=== PATIENT | female | born 1950 | race Caucasian/White ===

== ENCOUNTER 2017-05-25 12:17 | Emergency (ER) | payer BC, MEDICARE ==
[~2017-05-25] VITALS: Ht 175.3 cm; Wt 75.3 kg
[2017-05-25] MEDS ORDERED: ONDANSETRON 4 MG/2 ML VIAL IV ONE (12:30)
[2017-05-25] MEDS ORDERED: IV NORMAL SALINE 1000 ML BAG IV ONE (12:30)
[2017-05-25] MEDS ORDERED: MONT10TA22 PO (12:33)
[2017-05-25] MEDS ORDERED: ALEN70TA45 PO (12:33)
[2017-05-25] MEDS ORDERED: ADVIL PO (12:33)
[2017-05-25] MEDS ORDERED: OMEP20TA5 PO (12:33)
[2017-05-25] MEDS ORDERED: LINA145C PO (12:33)
[2017-05-25] MEDS ORDERED: BECL8.7A6 IH (12:33)
[2017-05-25] MEDS ORDERED: OXYB10TA PO (12:33)
[2017-05-25] MEDS ORDERED: ONDANSETRON 4 MG/2 ML VIAL ONE (12:46)
[2017-05-25 12:55] LABS: BASOPHILS # (AUTO) 0.1 K/uL (0.0-8.0); BASOPHILS % (AUTO) 0.6 % (0.0-2.0); EOSINOPHILS # (AUTO) 0.1 K/uL (0.0-0.7); EOSINOPHILS % (AUTO) 0.6 % (0.0-7.0); HEMATOCRIT 42.5 % (31.2-41.9); HEMOGLOBIN 14.6 g/dL (10.9-14.3); LYMPHOCYTES # (AUTO) 2.7 K/uL (20.0-40.0); LYMPHOCYTES % (AUTO) 29.1 % (20.5-51.5); MEAN CORPUSCULAR HGB CONC 34 g/dL (32.3-35.6); MEAN CORPUSCULAR VOLUME 90.1 fL (75.5-95.3); MONOCYTES # (AUTO) 0.5 K/uL (2.0-10.0); NEUTROPHILS % (AUTO) 64.7 % (38.5-71.5); PLATELET COUNT (AUTO) 229 K/uL (179-408); RED BLOOD CELL COUNT(AUTO) 4.72 MIL/uL (3.63-4.92); WHITE BLOOD COUNT (AUTO) 9.3 K/uL (3.8-11.8)
[2017-05-25 13:03] LABS: CREATININE 0.8 mg/dL (0.6-1.3); POTASSIUM 4.1 mmol/L (3.5-5.1)
[2017-05-25 13:08] LABS: BILIRUBIN,DIRECT 0.1 mg/dL (0.0-0.2); BILIRUBIN,TOTAL 0.5 mg/dL (0.2-1.0); TOTAL PROTEIN, SERUM 7.7 g/dL (6.4-8.2)
--- NOTE | 2017-05-25 14:02 | NUR ---
Patient discharged to home in stable conditon. Written and verbal after care instructions given. Patient verbalizes understanding of instructions.pt says feels better. pt denies dizziness, n/v , cp or sob at this time. pt with .
[2017-05-25 14:10] VITALS: BP 139/69
== END 2017-05-25 14:11 | disposition home or self-care (01) ==
LOC: ER 12:17
DX: E86.0 Dehydration (principal); J45.909 Unspecified asthma, uncomplicated; Z88.1 Allergy status to other antibiotic agents; Z88.8 Allergy status to other drugs, medicaments and biological substances; Z91.018 Allergy to other foods; Z79.899 Other long term (current) drug therapy; Z90.89 Acquired absence of other organs
CPT/HCPCS: 36415; 70030-TC; 70450; 71045; 83690; 85025; 85730; 93005; A4663; J2405; J7030